=== PATIENT | male | born 1955 | race Caucasian/White ===

== ENCOUNTER 2021-09-10 10:37 | Day surgery (SDC) | payer MEDICARE ==
[~2021-09-10] VITALS: Ht 188 cm; Wt 101.2 kg
[~2021-09-10 10:37] MED LIST: METFORMIN ER1000 M2 PO
[2021-09-10] MEDS ORDERED: GLIP2.5ER (11:04)
--- NOTE | 2021-09-10 11:28 | NUR ---
09/10/21 1128 True,Luan PUT IV IN RH INFILTRATED. PUT IN LW AND WORKED WELL.
== END 2021-09-10 13:45 | disposition home or self-care (01) ==
LOC: ORSCSDS 10:37
PROVIDERS: Surgery
PROC: 0DB48ZX Excision of Esophagogastric Junction, Via Natural or Artificial Opening Endoscopic, Diagnostic (ICD-10-PCS; principal; 2021-09-10 12:00)
PROC: 0DBP8ZX Excision of Rectum, Via Natural or Artificial Opening Endoscopic, Diagnostic (ICD-10-PCS; principal; 2021-09-10 12:00)
PROC: 0DBL8ZX Excision of Transverse Colon, Via Natural or Artificial Opening Endoscopic, Diagnostic (ICD-10-PCS; principal; 2021-09-10 12:00)
PROC: 0DB68ZX Excision of Stomach, Via Natural or Artificial Opening Endoscopic, Diagnostic (ICD-10-PCS; principal; 2021-09-10 12:00)
PROC: 0DBK8ZX Excision of Ascending Colon, Via Natural or Artificial Opening Endoscopic, Diagnostic (ICD-10-PCS; principal; 2021-09-10 12:00)
DX: C18.2 Malignant neoplasm of ascending colon (principal); K63.89 Other specified diseases of intestine; K22.70 Barrett's esophagus without dysplasia; D12.3 Benign neoplasm of transverse colon; D12.8 Benign neoplasm of rectum; K64.8 Other hemorrhoids; K57.30 Diverticulosis of large intestine without perforation or abscess without bleeding; I10 Essential (primary) hypertension; D50.9 Iron deficiency anemia, unspecified; Z87.891 Personal history of nicotine dependence; E66.9 Obesity, unspecified; Z68.30 Body mass index [BMI] 30.0-30.9, adult; E11.9 Type 2 diabetes mellitus without complications; Z79.84 Long term (current) use of oral hypoglycemic drugs
CPT/HCPCS: 82947; 88305; 88342; J2250; J2704; J7120

== ENCOUNTER 2021-11-05 06:15 | Inpatient (IN) | payer MEDICARE ==
[~2021-11-05] VITALS: Ht 188 cm; Wt 93.5 kg
[~2021-11-05 06:15] MED LIST changes: +GLIP2.5ER; +GLIP5 PO
--- NOTE | 2021-11-05 06:50 | NUR ---
[facility] ADMISSION STARTED. PATIENT NERVOUS ABOUT SURGERY. History, Chart, Medications and Allergies reviewed before start of procedure. Patient confirms NPO status and agrees with scheduled surgery. DRANK SURGICAL PREP AT 0436
[2021-11-05 13:59] LABS: BASOPHILS ABSOLUTE AUTO 0.08 K/mm3 (0.00-0.23); BASOPHILS PERCENT AUTO 0 % (0-2); EOSINOPHILS ABSOLUTE AUTO 0.01 K/mm3 (0.00-0.68); EOSINOPHILS PERCENT AUTO 0 % (0-6); Hematocrit 21.5 % (37.0-53.0); Hemoglobin 6.8 g/dL (13.5-17.5); IMMATURE GRAN ABSOLUTE AUTO 0.24 K/mm3 (0.00-0.10); IMMATURE GRAN PERCENT AUTO 1 % (0-1); LYMPHOCYTES ABSOLUTE AUTO 0.23 K/mm3 (0.84-5.20); LYMPHOCYTES PERCENT AUTO 1 % (21-46); MONOCYTES ABSOLUTE AUTO 0.35 K/mm3 (0.16-1.47); MONOCYTES PERCENT AUTO 2 % (4-13); Mean Corpuscular HGB 22.3 pg (26.0-34.0); Mean Corpuscular HGB Conc 31.6 g/dL (31.5-36.5); Mean Corpuscular Volume 71 fL (80-100); Mean Platelet Volume 9.2 fL (9.1-12.4); NEUTROPHILS ABSOLUTE AUTO 20.81 K/mm3 (1.96-9.15); NEUTROPHILS PERCENT AUTO 96 % (41-73); Platelet Count 531 K/mm3 (150-400); RDW Coefficient Variation 21.3 % (11.7-14.2); RDW Standard Deviation 54.2 fL (35.1-46.3); Red Blood Cell Count 3.05 M/mm3 (4.30-5.90); White Blood Cell Count 21.72 K/mm3 (4.00-11.30)
--- NOTE | 2021-11-05 19:54 | NUR ---
SHIFT SUMMARY POD 0 R HEMICOLECTOMY, A/O X4, VSS, TOLERATING CLEAR DIET, TITRATED TO ROOM AIR, PT SAT ON SIDE OF BED SEVERAL TIMES THIS SHIFT, AMBULATED MULTIPLE TIMES TO THE BATHROOM WITH IMPROVEMENTS EACH TIME, SBA AT THE END FOR LINE MANAGMENT. 1 UNIT PRBC INITIATED R/T HGB. NO OTHER EVENTS THIS SHIFT, CALL LIGHT IN REACH, REPORT GIVEN TO ISABELA DE LEON.
--- NOTE | 2021-11-06 05:03 | NUR ---
SHIFT SUMMARY POD1 R HEMICOLECTOMY. AOX4. LAP SITES WITH GAUZE, CDI. TOLERATING CLEAR DIET, DENIES N/V. VSS. PT ON ROOMAIR. PT SITS ON BEDSIDE WHEN ATTEMPTING TO URINATE. PT ALSO FEELS THAT HE IS GOING TO HAVE A BM, ATTEMPTED, SAT ON BSC X3 WITH NO SUCCESS. PT SBA, MILD DIZZINESS INTERMITENTLY. PT HAD 1 UNIT OF PRBC AT SHIFT CHANGED WITHNESS WITH DAY SHIFT NURSE. NO ACUTE EVENTS AFTER THE TRANFUSION. IV ABX WAS ALSO ADMINISTERED OVERNIGHT. REGISTERED ROUTE ASSOCIATE - FENTANYL ON DEMAND. SLEPT GOOD AFTER MIDNIGHT. CALL LIGHT WITHIN REACH. WILL PROVIDE REPORT TO ONCOMING NURSE.
[2021-11-06 06:04] LABS: Bun/Creatinine Ratio 25.4 (12.0-20.0); Calcium, Blood 7.9 mg/dL (8.5-10.1); Creatinine, Blood 0.63 mg/dL (0.60-1.20); Magnesium, Blood 2.1 mg/dL (1.6-2.4); Phosphorus, Blood 2.4 mg/dL (2.5-4.9); Potassium, Blood 4.2 mmol/L (3.5-5.5)
[2021-11-06 06:15] LABS: BASOPHILS ABSOLUTE AUTO 0.05 K/mm3 (0.00-0.23); BASOPHILS PERCENT AUTO 0 % (0-2); EOSINOPHILS ABSOLUTE AUTO 0.01 K/mm3 (0.00-0.68); EOSINOPHILS PERCENT AUTO 0 % (0-6); Hematocrit 22.8 % (37.0-53.0); Hemoglobin 7.5 g/dL (13.5-17.5); IMMATURE GRAN ABSOLUTE AUTO 0.12 K/mm3 (0.00-0.10); IMMATURE GRAN PERCENT AUTO 1 % (0-1); LYMPHOCYTES ABSOLUTE AUTO 0.84 K/mm3 (0.84-5.20); LYMPHOCYTES PERCENT AUTO 5 % (21-46); MONOCYTES ABSOLUTE AUTO 0.83 K/mm3 (0.16-1.47); MONOCYTES PERCENT AUTO 5 % (4-13); Mean Corpuscular HGB 23.4 pg (26.0-34.0); Mean Corpuscular HGB Conc 32.9 g/dL (31.5-36.5); Mean Corpuscular Volume 71 fL (80-100); Mean Platelet Volume 9.3 fL (9.1-12.4); NEUTROPHILS ABSOLUTE AUTO 15.97 K/mm3 (1.96-9.15); NEUTROPHILS PERCENT AUTO 90 % (41-73); Platelet Count 523 K/mm3 (150-400); RDW Coefficient Variation 21.9 % (11.7-14.2); RDW Standard Deviation 55.9 fL (35.1-46.3); Red Blood Cell Count 3.21 M/mm3 (4.30-5.90); White Blood Cell Count 17.82 K/mm3 (4.00-11.30)
--- NOTE | 2021-11-07 08:09 | NUR ---
SUMMARY NO FLATUS YET. NO C/O NAUSEA. REPORTS ADEQUATE PAIN CONTROL WITH FENTANYL CANNON PINION ADJUSTER.
--- NOTE | 2021-11-07 19:50 | NUR ---
SHIFT SUMMARY PT IS POD#2. HE IS TOLERATING FULL LIQUIDS. STILL NO FLATUS. PT HAS AMBULATED IN THE HALLWAYS X4 TODAY. BASS VIOL REPAIRER DC'D AND TRANSITIONED TO PO PAIN MEDICATION WITH FENTANYL FOR BREAKTHROUGH PAIN. PT IS PLEASANT AND IN GOOD SPIRITS THIS EVENING. REPORT GIVEN TO ISABELA DE LEON.
--- NOTE | 2021-11-08 07:26 | NUR ---
SUMMARY PT UP IN HALLS THIS AM, NO FLATUS YET.
[2021-11-08] MEDS ORDERED: Acetaminophen650 M1 PO (09:59)
[2021-11-08] MEDS ORDERED: OXYC5 PO (09:59)
--- NOTE | 2021-11-08 10:34 | NUR ---
Pt. is awake in bed and welcomes my visit. Pt. is alert and pleasant. Pt. displays evidence of confidence and hope. Establis rapport and facilitate a life history. [place] from [id number] but staying locally with sister at the time of hiis diagnosis. Pt. is a man of [place]. Prayed with Pt. Pt. verbalized gratitude for the spiritual care visit.
--- NOTE | 2021-11-08 15:55 | NUR ---
DISCHARGE SUMMARY PATIENT ALERT AND ORIENTED THROUGHOUT SHIFT. TOLERATING FULL LIQUID ADA DIET. BLOOD SUGARS STABLE, COVERAGE NOT NEEDED. AMBULATING IN ROOM WITH FWW. PAIN CONTROLLED WITH PO PAIN MEDS. ABD INCISION WITH TONY DRESSING IN PLACE, PATENT AND NO DRAINAGE NOTED. ABD SOFT AND OCC TENDER. PASSING GAS THIS AFTERNOON. DISCHARGE EDUCATION GIVEN ON WOUND CARE, ACTIVITY, FOLLOW UP APPTS, AND NEW RXS. IV'S DC'D WNL. PATIENT LEFT UNIT AT 1545 VIA WHEELCHAIR WITH FAMILY FOR HOME.
== END 2021-11-08 15:42 | disposition home or self-care (01) | DRG 331 ==
LOC: SURS 06:15 → PRE IP 07:30 → SURS 13:00 → PRE IP 11-19 07:30
PROVIDERS: ADMIT Surgery
PROC: 30233N1 Transfusion of Nonautologous Red Blood Cells into Peripheral Vein, Percutaneous Approach (ICD-10-PCS; 2021-11-05)
PROC: 8E0W7CZ Robotic Assisted Procedure of Trunk Region, Via Natural or Artificial Opening (ICD-10-PCS; 2021-11-05)
PROC: 0DBF0ZZ Excision of Right Large Intestine, Open Approach (ICD-10-PCS; principal; 2021-11-05 07:30)
DX: C18.2 Malignant neoplasm of ascending colon (principal); I10 Essential (primary) hypertension; D50.9 Iron deficiency anemia, unspecified; K22.70 Barrett's esophagus without dysplasia; E11.9 Type 2 diabetes mellitus without complications; Z98.890 Other specified postprocedural states; Z79.84 Long term (current) use of oral hypoglycemic drugs; Z88.5 Allergy status to narcotic agent; Z90.49 Acquired absence of other specified parts of digestive tract; Z88.8 Allergy status to other drugs, medicaments and biological substances; Z87.891 Personal history of nicotine dependence; Z79.899 Other long term (current) drug therapy
CPT/HCPCS: 36415; 36430; 80048; 82947; 83735; 84100; 85025; 86850; 86900; 86901; 86923; 88309; 88342; A9270; J0690; J1100; J1650; J1815; J2370; J2405; J2704; J3010; J7040; J7120; P9016